=== PATIENT | female | born 1960 | race Caucasian/White ===

== ENCOUNTER → 2019-06-20 08:34 | Outpatient (CLI) | payer OTHER, SELFPAY ==
--- NOTE | ~2019-06-20 | MR_ITS ---
EXAMINATION: MR brain/brain stem wo/w con EXAM DATE: 06/20/2019 09:31 INDICATION: Occasional right-sided headaches. Dizziness, memory loss, progressing. TECHNIQUE: Magnetic resonance imaging (MRI) of the brain/brain stem obtained without contrast. Sagit emerson T1, axial diffusion, gradient echo (T2*), T1, T2, FLAIR sequences obtained. Patient was then inj ected with 15 cc intravenous Multihance contrast. Axial and coronal postcontrast T1 weighted sequence s obtained. There is no prior study for comparison. FINDINGS: There are no areas of restricted diffusion to suggest acute infarction. There is no acute hemorrhage seen on the T2*, a hemosiderin sensitive sequence. No intraparenchymal brain mass. The ve ntricles are normal in size. There are no extra-axial collections. Flow voids are seen in the cereb ral arteries on the T2-weighted sequences consistent with their expected patency. The orbits are unr emarkable. Soft tissue is unremarkable. 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 There ar e no other areas of abnormal enhancement on the postcontrast images. There is moderate bilateral ethm oid, mild to moderate right maxillary and mild left maxillary sinus mucoperiosteal thickening. No sin us air-fluid levels. IMPRESSION: 1. Incidental left parietal DVA. Not clinically significant finding. 2. Moderate ethmoid, left maxillary sinus mucoperiosteal thickening. 3. Otherwise normal exam. Reviewed, dictated and finalized at location B. HAND
[2019-06-20 09:21] LABS: Blood Urea Nitrogen 11 mg/dL (8-26); Estimated Glomerular Filt Rate > 60
== END ==
PROVIDERS: PCP Family Medicine; Visit Provider Family Medicine
DX: R41.3 Other amnesia (principal)
CPT/HCPCS: 70553; A9577